=== PATIENT | male | born 2000 | race Two or more races ===

== ENCOUNTER 2018-09-25 22:13 | Emergency (ER) | payer MEDICAID ==
[~2018-09-25] VITALS: Ht 175.3 cm; Wt 68.0 kg
[2018-09-26 05:49] VITALS: BP 119/70
== END 2018-09-26 06:01 | disposition home or self-care (01) ==
LOC: EDBD 22:13 → ER 22:28
DX: M54.2 Cervicalgia (principal); F17.210 Nicotine dependence, cigarettes, uncomplicated; W01.198A Fall on same level from slipping, tripping and stumbling with subsequent striking against other object, initial encounter; Y93.01 Activity, walking, marching and hiking; Y99.8 Other external cause status; Y92.480 Sidewalk as the place of occurrence of the external cause
CPT/HCPCS: 70450; 72125

== ENCOUNTER 2021-11-01 22:41 | Emergency (ER) | payer MEDICAID ==
[~2021-11-01] VITALS: Ht 177.8 cm; Wt 72.7 kg
[2021-11-02] MEDS ORDERED: cefTRIAXone SOD 1,000 MG VL IM ONE (07:15)
[2021-11-02] MEDS ORDERED: TETANUS-DIPTH-ACEL PERTUSSIS 0.5ML SYR Tdap IM ONE (07:15)
[2021-11-02] MEDS ORDERED: ACET-1158 PO (07:35)
[2021-11-02] MEDS ORDERED: CLIN300C8 PO (07:35)
[2021-11-02] MEDS ORDERED: CEPH-509 PO (07:35)
[2021-11-02] MEDS ORDERED: BACIOIN15 TOP (07:42)
[2021-11-02] MEDS ORDERED: CLINDAMYCIN 600MG IV 50 ML IV ONE (10:45)
[2021-11-02] MEDS ORDERED: SODIUM CHLORIDE 0.9% 2,000 ML IV ONE (10:45)
[2021-11-02] MEDS ORDERED: CLINDAMYCIN 900MG IV 50 ML IV ONE (10:45)
[2021-11-02 10:51] LABS: Basophils # (auto) 0 10 ^3/uL (0-0.2); Basophils % (auto) 0.5 % (0.0-2.0); Eosinophils # (auto) 0.2 10 ^3/uL (0-0.8); Eosinophils % (auto) 4.2 % (0.0-7.0); Hematocrit 36.7 % (41.0-53.0); Hemoglobin 11.6 g/dL (13.5-17.5); Lymphocytes # (auto) 0.9 10 ^3/uL (0.4-5.4); Lymphocytes % (auto) 19.5 % (10.0-50.0); Mean Corpuscular Hgb Conc. 31.7 g/dL (32.0-36.0); Mean Corpuscular Volume 85.1 fL (80.0-100.0); Monocytes # (auto) 0.5 10 ^3/uL (0-1.3); Neutrophils # (auto) 2.9 10 ^3/uL (1.6-8.6); Neutrophils % (auto) 64.8 % (37.0-80.0); Nucleated Red Blood Cells % 0.1 %; Red Blood Cells 4.31 10^6/uL (4.5-5.90); Red Cell Distribution Width 14.8 % (11.8-14.3); White Blood Cell 4.5 10^3/uL (4.4-10.8)
[2021-11-02 11:35] LABS: Potassium 3.9 mmol/L (3.5-5.1)
[2021-11-02 11:36] LABS: BUN/Creatinine Ratio 21.1; Calcium 8.2 mg/dL (8.5-10.1)
[2021-11-02 11:37] LABS: Bilirubin, Total 0.3 mg/dL (0.2-1.0)
[2021-11-02 13:37] LABS: Urine WBC None Seen /hpf (0 - 3)
[2021-11-02 14:07] LABS: Urine Bacteria NONE SEEN /hpf (None Seen); Urine Blood Negative /uL (Negative)
[2021-11-02 14:13] LABS: Alcohol, Urine < 3.0 mg/dL (0-10); Amphetamine Screen, Urine POSITIVE (NEGATIVE); Barbiturate Scree,Urine NEGATIVE (NEGATIVE); Benzodiazephine Screen, Urine NEGATIVE (NEGATIVE); Cannabinoid Screen, Urine POSITIVE (NEGATIVE); Cocaine Screen, Urine NEGATIVE (NEGATIVE); Opiate Scree,Urine NEGATIVE (NEGATIVE); Phencyclidine Screen, Urine NEGATIVE (NEGATIVE)
[2021-11-02 19:18] VITALS: BP 113/80
== END 2021-11-02 19:56 | disposition short-term general hospital (02) ==
LOC: EDBD 22:41 → ER 22:41
DX: S52.501B Unspecified fracture of the lower end of right radius, initial encounter for open fracture type I or II (principal); S61.511A Laceration without foreign body of right wrist, initial encounter; F15.10 Other stimulant abuse, uncomplicated; F17.210 Nicotine dependence, cigarettes, uncomplicated; Z79.2 Long term (current) use of antibiotics; Z79.899 Other long term (current) drug therapy; Z20.822 Contact with and (suspected) exposure to COVID-19; X58.XXXA Exposure to other specified factors, initial encounter; Y93.89 Activity, other specified; Y92.89 Other specified places as the place of occurrence of the external cause; Y99.8 Other external cause status
CPT/HCPCS: 36415; 73110; 73200; 80053; 80307; 81001; 83615; 85025; 87040; 87426; 90471; 90715; 96365; 96366; 96372; 99285; J0696; J3490